=== PATIENT | female | born 1955 | race Asian ===

== ENCOUNTER → 2024-01-20 07:22 | Outpatient (REF) | payer MEDICARE, OTHER, SELFPAY | LOC: RAD 07:22 | PROVIDERS: ATTENDING PHYSICIAN Surgery Vascular Surgery; FAMILY PHYSICIAN Family Medicine | DX: I71.43 Infrarenal abdominal aortic aneurysm, without rupture (principal); I73.9 Peripheral vascular disease, unspecified; I65.22 Occlusion and stenosis of left carotid artery | CPT/HCPCS: 76770; 93880; 93922; 93925 ==

== ENCOUNTER → 2025-01-27 07:04 | Outpatient (REF) | payer MEDICARE, OTHER, SELFPAY | LOC: RAD 07:04 | PROVIDERS: ATTENDING PHYSICIAN Surgery Vascular Surgery; FAMILY PHYSICIAN Family Medicine | DX: I73.9 Peripheral vascular disease, unspecified (principal); I65.22 Occlusion and stenosis of left carotid artery; I71.43 Infrarenal abdominal aortic aneurysm, without rupture | CPT/HCPCS: 76770; 93880; 93922; 93925 ==

== ENCOUNTER → 2025-07-28 09:49 | Outpatient (REF) | payer MEDICARE, OTHER, SELFPAY | LOC: RCS 09:49 | PROVIDERS: ATTENDING PHYSICIAN Internal Medicine Cardiovascular Disease; FAMILY PHYSICIAN Family Medicine | DX: I21.09 ST elevation (STEMI) myocardial infarction involving other coronary artery of anterior wall (principal); I48.0 Paroxysmal atrial fibrillation | CPT/HCPCS: 93306 ==